=== PATIENT | female | born 1985 | race Caucasian/White ===

== ENCOUNTER 2016-04-11 12:11 | Emergency (ER) | payer SELFPAY ==
[~2016-04-11] VITALS: Ht 157.5 cm; Wt 99.0 kg
[2016-04-11 12:14] VITALS: Ht 157.5 cm; Wt 99.0 kg
== END 2016-04-11 15:02 | disposition left against medical advice (07) ==
LOC: FTE 12:11
DX: Z53.21 Procedure and treatment not carried out due to patient leaving prior to being seen by health care provider (principal)